=== PATIENT | male | born 1940 | race African-American/Black ===

== ENCOUNTER 2022-05-29 12:30 | Inpatient (IN) | payer MEDICARE, MEDICAID ==
[~2022-05-29] VITALS: Ht 182.9 cm; Wt 122.0 kg
[2022-05-29 14:27] LABS: BASOPHILS % 0.2 % (0.0-2.0); EOSINOPHILS % 0.3 % (0.0-5.0); HEMATOCRIT. 30.6 % (42.0-52.0); HEMOGLOBIN. 9.7 g/dL (14.0-18.0); LYMPHOCYTES % 9.2 % (20.0-50.0); MEAN CORPUSCULAR HEMOGLOBIN 31.3 pg (28.0-32.0); MEAN CORPUSCULAR VOLUME 99.4 fL (80.0-94.0); MEAN PLATELET VOLUME 8.8 fl (7.4-10.4); MONOCYTES % 8.3 % (2.0-8.0); PLATELET 139 x1000/uL (130-400); RED BLOOD CELL COUNT 3.08 mill/uL (4.7-6.1); RED CELL DISTRIBUTION WIDTH 15.6 % (11.6-14.6)
[2022-05-29 14:29] LABS: PROTHROMBIN TIME 11.1 sec (9.6-11.0)
[2022-05-29 14:33] LABS: CHLORIDE 93 mEq/L (98-107)
[2022-05-29] MEDS ORDERED: INSULIN REGULAR (HUMULIN R) 300UNITS/3ML VIAL IV NR (15:00)
[2022-05-29] MEDS ORDERED: DEXTROSE 50% WATER 50ML SYRINGE IV NR (15:00)
[2022-05-29] MEDS ORDERED: CALCIUM CHLORIDE 1GM/10ML SYR IV NR (15:00)
[2022-05-29] MEDS ORDERED: ALBUTEROL (0.083%) 2.5MG/3ML NEB HHN NR (15:00)
[2022-05-29] MEDS ORDERED: SODIUM BICARBONATE 8.4% 1 MEQ/ML 50ML SYR IV NR (15:00)
[2022-05-29 18:29] LABS: HEPATITIS B SURFACE ANTIGEN NEGATIVE
[2022-05-29] MEDS ORDERED: ACETAMINOPHEN 500MG TABLET PO PRN (21:45)
[2022-05-30] VITALS (11 sets, daily range): BP systolic 91–123; BP diastolic 49–68
[2022-05-30] MEDS ORDERED: SODIUM BICARBONATE 8.4% 1 MEQ/ML 50ML SYR IV NR (01:15)
[2022-05-30] MEDS ORDERED: SODIUM POLYSTYRENE SULFONATE 15 G/60 ML BOT PO NR (01:15)
[2022-05-30] MEDS ORDERED: DEXTROSE 50% WATER 50ML SYRINGE IV NR (01:15)
[2022-05-30] MEDS ORDERED: INSULIN REGULAR (HUMULIN R) 300UNITS/3ML VIAL IV NR (01:15)
[2022-05-30 05:16] LABS: BASOPHILS % 0.3 % (0.0-2.0); EOSINOPHILS % 0.1 % (0.0-5.0); HEMATOCRIT. 25.6 % (42.0-52.0); HEMOGLOBIN. 8.2 g/dL (14.0-18.0); LYMPHOCYTES % 7.4 % (20.0-50.0); MEAN CORPUSCULAR HEMOGLOBIN 31.4 pg (28.0-32.0); MEAN CORPUSCULAR VOLUME 98.1 fL (80.0-94.0); MEAN PLATELET VOLUME 8.8 fl (7.4-10.4); MONOCYTES % 13.5 % (2.0-8.0); NEUTROPHILS % 78.7 % (40.0-76.0); PLATELET 133 x1000/uL (130-400); RED BLOOD CELL COUNT 2.61 mill/uL (4.7-6.1); RED CELL DISTRIBUTION WIDTH 15.7 % (11.6-14.6)
[2022-05-30 05:23] LABS: CHLORIDE 99 mEq/L (98-107)
[2022-05-30 06:06] LABS: PHOSPHORUS 9.4 mg/dL (2.5-4.9)
[2022-05-30] MEDS ORDERED: LIDOCAINE HCL 1% 30ML VIAL (10MG/ML) ONE (08:23)
[2022-05-30] MEDS ORDERED: HEPARIN 1000 UNITS/ML 10ML ONE (08:24)
[2022-05-30] MEDS ORDERED: SODIUM POLYSTYRENE SULFONATE 15 G/60 ML BOT PO SCH (09:15)
[2022-05-30] MEDS ORDERED: CALCIUM CHLORIDE 1GM/10ML SYR IV SCH (09:15)
[2022-05-30] MEDS ORDERED: TOPUD PO (11:07)
[2022-05-30] MEDS ORDERED: GABA-532 MT (11:07)
[2022-05-30] MEDS ORDERED: ZINC50TA69 PO (11:07)
[2022-05-30] MEDS ORDERED: ASPI-1497 MT (11:07)
[2022-05-30] MEDS ORDERED: SEVE800T8 MT (11:07)
[2022-05-30] MEDS ORDERED: MIDO10TA MT (11:07)
[2022-05-30] MEDS ORDERED: MULT-1146 MT (11:07)
[2022-05-30] MEDS ORDERED: HYDR-4001 MT (11:07)
[2022-05-30] MEDS ORDERED: APIX5TAB MT (11:07)
[2022-05-30] MEDS ORDERED: ALLO100T PO (11:07)
[2022-05-30] MEDS ORDERED: ALBU90AE IH (11:07)
[2022-05-30] MEDS ORDERED: FOLI0.8T23 PO (11:07)
[2022-05-30] MEDS ORDERED: COLC0.6C3 PO (11:07)
[2022-05-30] MEDS: MIDODRINE HCL 5MG TABLET PO SCH ×3 (11:12→21:56)
[2022-05-30] MEDS: SEVELAMER CARBONATE 800 MG TABLET PO SCH ×2 (14:47→18:53)
[2022-05-30] MEDS: ALLOPURINOL 100 MG TABLET PO SCH (14:47)
[2022-05-30] MEDS: OMEPRAZOLE 20MG CAPSULE EXTENDED RELEASE PO SCH (14:47)
[2022-05-30] MEDS ORDERED: APIXABAN 2.5 MG TABLET PO SCH (17:00)
[2022-05-30 18:35] LABS: CREATINE KINASE MB FRACTION 9.8 ng/mL (0.5-3.6)
[2022-05-30 19:29] LABS: T4 FREE 0.88 ng/dL (0.76-1.46)
[2022-05-30] MEDS ORDERED: EPOETIN ALFA-EPBX 4,000 UNIT/ML VIAL SUBCUT SCH (21:00)
[2022-05-30] MEDS: EPOETIN ALFA-EPBX 4,000 UNIT/ML VIAL SUBCUT SCH (21:00)
[2022-05-30] MEDS: GABAPENTIN 300MG CAPSULE PO SCH (21:52)
[2022-05-31] VITALS (17 sets, daily range): BP systolic 92–121; BP diastolic 47–70
[2022-05-31 02:12] LABS: CREATINE KINASE MB FRACTION 7.8 ng/mL (0.5-3.6)
[2022-05-31] MEDS: MIDODRINE HCL 5MG TABLET PO SCH ×3 (05:48→22:27)
[2022-05-31 06:40] LABS: BASOPHILS % 0.5 % (0.0-2.0); EOSINOPHILS % 0.1 % (0.0-5.0); HEMOGLOBIN. 7.9 g/dL (14.0-18.0); LYMPHOCYTES % 15.2 % (20.0-50.0); MEAN CORPUSCULAR HEMOGLOBIN 31.9 pg (28.0-32.0); MEAN CORPUSCULAR VOLUME 96.7 fL (80.0-94.0); MEAN PLATELET VOLUME 8.7 fl (7.4-10.4); MONOCYTES % 13.3 % (2.0-8.0); NEUTROPHILS % 70.9 % (40.0-76.0); PLATELET 135 x1000/uL (130-400); RED BLOOD CELL COUNT 2.48 mill/uL (4.7-6.1); RED CELL DISTRIBUTION WIDTH 15.8 % (11.6-14.6)
[2022-05-31] MEDS: OMEPRAZOLE 20MG CAPSULE EXTENDED RELEASE PO SCH (06:54)
[2022-05-31] MEDS: SEVELAMER CARBONATE 800 MG TABLET PO SCH ×3 (08:26→18:00)
[2022-05-31] MEDS: ALLOPURINOL 100 MG TABLET PO SCH (08:26)
[2022-05-31] MEDS: FOLIC ACID/VITAMIN B COMP W-C TABLET PO SCH (08:27)
[2022-05-31] MEDS: EPOETIN ALFA-EPBX 4,000 UNIT/ML VIAL SUBCUT SCH (22:27)
[2022-05-31] MEDS: GABAPENTIN 300MG CAPSULE PO SCH (22:27)
[2022-06-01] VITALS (14 sets, daily range): BP systolic 92–124; BP diastolic 48–69
[2022-06-01] MEDS: MIDODRINE HCL 5MG TABLET PO SCH ×3 (06:18→21:10)
[2022-06-01 06:25] LABS: BASOPHILS % 0.6 % (0.0-2.0); EOSINOPHILS % 0.5 % (0.0-5.0); HEMATOCRIT. 24.6 % (42.0-52.0); HEMOGLOBIN. 8.2 g/dL (14.0-18.0); LYMPHOCYTES % 14.8 % (20.0-50.0); MEAN CORPUSCULAR HEMOGLOBIN 32.1 pg (28.0-32.0); MEAN CORPUSCULAR VOLUME 96.2 fL (80.0-94.0); MEAN PLATELET VOLUME 8.3 fl (7.4-10.4); MONOCYTES % 14.5 % (2.0-8.0); NEUTROPHILS % 69.6 % (40.0-76.0); PLATELET 134 x1000/uL (130-400); RED BLOOD CELL COUNT 2.56 mill/uL (4.7-6.1); RED CELL DISTRIBUTION WIDTH 15.1 % (11.6-14.6)
[2022-06-01 06:44] LABS: PHOSPHORUS 6.3 mg/dL (2.5-4.9)
[2022-06-01] MEDS: ALLOPURINOL 100 MG TABLET PO SCH (09:56)
[2022-06-01] MEDS: FOLIC ACID/VITAMIN B COMP W-C TABLET PO SCH (09:56)
[2022-06-01] MEDS: SEVELAMER CARBONATE 800 MG TABLET PO SCH ×3 (09:56→18:55)
[2022-06-01] MEDS: OMEPRAZOLE 20MG CAPSULE EXTENDED RELEASE PO SCH (09:57)
[2022-06-01] MEDS ORDERED: APIX2.5T PO (12:55)
[2022-06-01] MEDS ORDERED: SEVE800T8 PO (12:57)
[2022-06-01] MEDS ORDERED: DUTA0.5C37 PO (12:58)
[2022-06-01] MEDS ORDERED: SODI5POW2 PO (13:00)
[2022-06-01] MEDS: GABAPENTIN 300MG CAPSULE PO SCH (21:10)
[2022-06-02] VITALS (12 sets, daily range): BP systolic 108–153; BP diastolic 59–82
[2022-06-02] MEDS: MIDODRINE HCL 5MG TABLET PO SCH ×3 (06:05→22:00)
[2022-06-02] MEDS: OMEPRAZOLE 20MG CAPSULE EXTENDED RELEASE PO SCH (06:05)
[2022-06-02] MEDS: ALLOPURINOL 100 MG TABLET PO SCH (08:39)
[2022-06-02] MEDS: FOLIC ACID/VITAMIN B COMP W-C TABLET PO SCH (08:39)
[2022-06-02] MEDS: SEVELAMER CARBONATE 800 MG TABLET PO SCH ×3 (08:39→18:30)
[2022-06-02] MEDS: GABAPENTIN 300MG CAPSULE PO SCH (21:50)
[2022-06-03] VITALS (22 sets, daily range): BP systolic 96–159; BP diastolic 50–84
[2022-06-03] MEDS: MIDODRINE HCL 5MG TABLET PO SCH ×4 (06:00→18:20)
[2022-06-03 06:37] LABS: PHOSPHORUS 5.1 mg/dL (2.5-4.9)
[2022-06-03 06:42] LABS: BASOPHILS % 0.5 % (0.0-2.0); EOSINOPHILS % 0.6 % (0.0-5.0); HEMOGLOBIN. 7.9 g/dL (14.0-18.0); LYMPHOCYTES % 14.9 % (20.0-50.0); MEAN CORPUSCULAR HEMOGLOBIN 31.7 pg (28.0-32.0); MEAN CORPUSCULAR VOLUME 96.5 fL (80.0-94.0); MEAN PLATELET VOLUME 8.3 fl (7.4-10.4); MONOCYTES % 12.5 % (2.0-8.0); NEUTROPHILS % 71.5 % (40.0-76.0); PLATELET 146 x1000/uL (130-400); PROTHROMBIN TIME 10.9 sec (9.6-11.0); RED BLOOD CELL COUNT 2.49 mill/uL (4.7-6.1); RED CELL DISTRIBUTION WIDTH 14.9 % (11.6-14.6)
[2022-06-03] MEDS ORDERED: CEFAZOLIN 1000MG PREMIX 50 ML IV NR (07:00)
[2022-06-03] MEDS ORDERED: FENTANYL CITRATE/PF 50MCG/ML 2ML VIAL ONE (07:30)
[2022-06-03] MEDS ORDERED: LIDOCAINE HCL/PF 1% 10 MG/ML 5ML VIAL ONE ×2 (07:30→07:46)
[2022-06-03] MEDS ORDERED: HEPARIN 1000 UNITS/ML 10ML ONE (07:46)
[2022-06-03] MEDS: OMEPRAZOLE 20MG CAPSULE EXTENDED RELEASE PO SCH (09:50)
[2022-06-03] MEDS: SEVELAMER CARBONATE 800 MG TABLET PO SCH ×3 (09:50→18:21)
[2022-06-03] MEDS: ALLOPURINOL 100 MG TABLET PO SCH (09:50)
[2022-06-03] MEDS: FOLIC ACID/VITAMIN B COMP W-C TABLET PO SCH (09:54)
[2022-06-03] MEDS: EPOETIN ALFA-EPBX 4,000 UNIT/ML VIAL SUBCUT SCH (21:32)
[2022-06-03] MEDS: GABAPENTIN 300MG CAPSULE PO SCH (21:32)
[2022-06-04] VITALS (12 sets, daily range): BP systolic 92–126; BP diastolic 48–64
[2022-06-04] MEDS: OMEPRAZOLE 20MG CAPSULE EXTENDED RELEASE PO SCH (06:16)
[2022-06-04] MEDS: MIDODRINE HCL 5MG TABLET PO SCH ×3 (06:19→21:24)
[2022-06-04 06:37] LABS: PHOSPHORUS 6.1 mg/dL (2.5-4.9)
[2022-06-04 06:43] LABS: BASOPHILS % 0.7 % (0.0-2.0); EOSINOPHILS % 0.5 % (0.0-5.0); HEMATOCRIT. 26.3 % (42.0-52.0); HEMOGLOBIN. 8.4 g/dL (14.0-18.0); LYMPHOCYTES % 19.1 % (20.0-50.0); MEAN CORPUSCULAR HEMOGLOBIN 31.6 pg (28.0-32.0); MEAN CORPUSCULAR VOLUME 99.4 fL (80.0-94.0); MEAN PLATELET VOLUME 8.5 fl (7.4-10.4); MONOCYTES % 13.8 % (2.0-8.0); NEUTROPHILS % 65.9 % (40.0-76.0); PLATELET 145 x1000/uL (130-400); RED BLOOD CELL COUNT 2.65 mill/uL (4.7-6.1); RED CELL DISTRIBUTION WIDTH 15.3 % (11.6-14.6)
[2022-06-04] MEDS: ALLOPURINOL 100 MG TABLET PO SCH (08:48)
[2022-06-04] MEDS: FOLIC ACID/VITAMIN B COMP W-C TABLET PO SCH (08:48)
[2022-06-04] MEDS: SEVELAMER CARBONATE 800 MG TABLET PO SCH ×3 (08:48→18:49)
[2022-06-04 10:16] LABS: BG BASE EXCESS -1.9 mmol/L (-2.0-2.0); BG CARBOXYHEMOGLOBIN 0.7 % (0.5-1.5); BG HCO3 ACT 23.3 mmol/L (22.0-26.0); BG OXYHEMOGLOBIN 95.3 % (94.0-97.0); BG PCO2 41.3 mmHg (35.0-45.0); BG PH 7.369 (7.350-7.450); BG PO2 87.7 mmHg (75.0-100.0); BG SAMPLE SITE LEFT RADIAL; BG TOTAL HEMOGLOBIN 8.5 g/dL (12.0-18.0); BG VENT MODE ROOM AIR
[2022-06-04] MEDS: GABAPENTIN 300MG CAPSULE PO SCH (21:24)
[2022-06-05] VITALS: BP 109/57
[2022-06-05 02:00] VITALS: BP 112/58
[2022-06-05 04:00] VITALS: BP 107/58
[2022-06-05 05:43] LABS: PHOSPHORUS 4.6 mg/dL (2.5-4.9)
[2022-06-05] MEDS: MIDODRINE HCL 5MG TABLET PO SCH (05:56)
[2022-06-05 06:00] VITALS: BP 109/57
[2022-06-05 06:09] LABS: BASOPHILS % 0.6 % (0.0-2.0); EOSINOPHILS % 0.1 % (0.0-5.0); HEMOGLOBIN. 8.4 g/dL (14.0-18.0); MEAN CORPUSCULAR HEMOGLOBIN 31.6 pg (28.0-32.0); MEAN CORPUSCULAR VOLUME 97.5 fL (80.0-94.0); MEAN PLATELET VOLUME 8.2 fl (7.4-10.4); MONOCYTES % 13.2 % (2.0-8.0); NEUTROPHILS % 73.1 % (40.0-76.0); PLATELET 140 x1000/uL (130-400); RED BLOOD CELL COUNT 2.67 mill/uL (4.7-6.1); RED CELL DISTRIBUTION WIDTH 14.7 % (11.6-14.6)
[2022-06-05 08:00] VITALS: BP 105/66
[2022-06-05] MEDS: OMEPRAZOLE 20MG CAPSULE EXTENDED RELEASE PO SCH (08:49)
[2022-06-05] MEDS: SEVELAMER CARBONATE 800 MG TABLET PO SCH (08:49)
[2022-06-05] MEDS: FOLIC ACID/VITAMIN B COMP W-C TABLET PO SCH (10:02)
[2022-06-05] MEDS: ALLOPURINOL 100 MG TABLET PO SCH (10:02)
[2022-06-05 12:00] VITALS: BP 94/59
== END 2022-06-05 13:50 | disposition home or self-care (01) | DRG 314 ==
LOC: EDBEDREQ 12:53 → ER 13:17 → EDBEDREQSVC 14:49 → EDBEDREQ 14:49 → EDBEDREQTM 14:49 → MICUSO 16:48 → EDBEDREQTM 16:53 → EDBEDREQ 16:53 → 5EST 05-30 08:59
PROVIDERS: ADMIT Internal Medicine Critical Care Medicine; ATTEND Internal Medicine Critical Care Medicine
PROC: 5A1D70Z Performance of Urinary Filtration, Intermittent, Less than 6 Hours Per Day (ICD-10-PCS; 2022-05-29)
PROC: 02H633Z Insertion of Infusion Device into Right Atrium, Percutaneous Approach (ICD-10-PCS; 2022-05-30)
PROC: B548ZZA Ultrasonography of Superior Vena Cava, Guidance (ICD-10-PCS; 2022-05-30)
PROC: 5A1D70Z Performance of Urinary Filtration, Intermittent, Less than 6 Hours Per Day (ICD-10-PCS; 2022-05-30)
PROC: 5A1D70Z Performance of Urinary Filtration, Intermittent, Less than 6 Hours Per Day (ICD-10-PCS; 2022-05-31)
PROC: 0JH63XZ Insertion of Tunneled Vascular Access Device into Chest Subcutaneous Tissue and Fascia, Percutaneous Approach (ICD-10-PCS; principal; 2022-06-03)
PROC: 02H633Z Insertion of Infusion Device into Right Atrium, Percutaneous Approach (ICD-10-PCS; 2022-06-03)
PROC: B5181ZA Fluoroscopy of Superior Vena Cava using Low Osmolar Contrast, Guidance (ICD-10-PCS; 2022-06-03)
DX: T82.898A Other specified complication of vascular prosthetic devices, implants and grafts, initial encounter (principal); N18.6 End stage renal disease; I48.20 Chronic atrial fibrillation, unspecified; E87.1 Hypo-osmolality and hyponatremia; I50.30 Unspecified diastolic (congestive) heart failure; I13.2 Hypertensive heart and chronic kidney disease with heart failure and with stage 5 chronic kidney disease, or end stage renal disease; Z20.822 Contact with and (suspected) exposure to COVID-19; E87.5 Hyperkalemia; E83.39 Other disorders of phosphorus metabolism; E11.22 Type 2 diabetes mellitus with diabetic chronic kidney disease; D63.1 Anemia in chronic kidney disease; E78.5 Hyperlipidemia, unspecified; E87.6 Hypokalemia; D53.9 Nutritional anemia, unspecified; J44.9 Chronic obstructive pulmonary disease, unspecified; Z90.49 Acquired absence of other specified parts of digestive tract; Z86.16 Personal history of COVID-19; Z96.652 Presence of left artificial knee joint; Z87.891 Personal history of nicotine dependence; Z79.01 Long term (current) use of anticoagulants; Z79.899 Other long term (current) drug therapy; Z99.2 Dependence on renal dialysis; Y83.2 Surgical operation with anastomosis, bypass or graft as the cause of abnormal reaction of the patient, or of later complication, without mention of misadventure at the time of the procedure; Y92.89 Other specified places as the place of occurrence of the external cause
CPT/HCPCS: 36415; 36556; 36558; 36589; 36600; 71045; 76937; 77001; 80048; 80053; 80061; 82375; 82550; 82553; 82805; 82962; 83036; 83605; 83735; 84100; 84132; 84439; 84443; 84484; 84520; 85025; 85379; 86705; 86709; 86803; 87340; 87426; 93005; 94640; 97116; 97162; 97166; 97530; 97535; 99152; 99153; 99291; A6261; C1752; J0690; J0885; J1644; J3010; J3490; G0500